=== PATIENT | male | born 1995 | race Caucasian/White ===

== ENCOUNTER 2016-08-01 07:25 | Emergency (ER) | payer OTHER ==
[~2016-08-01] VITALS: Ht 175.3 cm; Wt 69.5 kg
[2016-08-01 09:44] VITALS: BP 139/80
== END 2016-08-01 09:44 | disposition home or self-care (01) ==
LOC: ED 07:25
DX: J02.9 Acute pharyngitis, unspecified (principal); M79.1 Myalgia

== ENCOUNTER 2017-10-20 15:06 | Emergency (ER) | payer OTHER ==
[~2017-10-20] VITALS: Ht 170.2 cm; Wt 75.7 kg
[2017-10-20 15:19] VITALS: Ht 170.2 cm; Wt 75.7 kg
[2017-10-20 17:20] VITALS: BP 140/68
== END 2017-10-20 17:20 | disposition home or self-care (01) ==
LOC: ED 15:06
DX: S05.02XA Injury of conjunctiva and corneal abrasion without foreign body, left eye, initial encounter (principal); X08.8XXA Exposure to other specified smoke, fire and flames, initial encounter; Y93.89 Activity, other specified; Y92.89 Other specified places as the place of occurrence of the external cause; Y99.8 Other external cause status
CPT/HCPCS: 90715